=== PATIENT | female | born 1965 | race Caucasian/White ===

== ENCOUNTER 2024-11-20 11:30 | Outpatient (CLI) | payer BC, SELFPAY ==
--- OUTSIDE RECORDS SUMMARY | 2024-11-20 11:32 | XMS_ITS | Patient Health Record ---
Author Organization [facility] Address [address] [place] [address] Care Team Providers Care Technical Service Representative Name Role Phone Georgina Moore Primary Care Provider [phone] Allergies Allergen (clinical drug ingredient) Drug/Non Drug Allergy documented on EMR Reaction Allergy Type Onset Date Status aspirin Aspirin bruising Drug Allergy Active Reason For Referral No Information Medications Medication SIG (Take, Route, Frequency, Duration) Notes Start Date End Date Status Acyclovir 400 MG Tablet 1 tablet Orally once daily; Duration: 90 days 07/23/2023 Active ALPRAZolam 0.5 MG Tablet TAKE 1 TABLET BY MOUTH TWICE DAILY; Duration: 30 DX F41.1 05/27/2024 Active L-Lysine Extra Strength Active Acyclovir 400 MG Tablet TAKE 1 TABLET BY MOUTH THREE TIMES DAILY FOR 10 DAYS; Duration: 10 PRN Active Amitriptyline HCl 25 MG Tablet TAKE 1 TABLET BY MOUTH ONCE DAILY AT BEDTIME; Duration: 90 Not-Taking Vitamin B 12 500 MCG Tablet 1 tablet Orally Once a day Active Vitamin D 50 MCG (1999 UT) Tablet 1 tablet Orally Once a day Active [place] 3 Active Biotin 10 MG Tablet 1 tablet Orally Once a day Active Pantoprazole Sodium 40 MG Tablet Delayed Release Take 1 tablet by mouth once daily; Duration: 30 PRN Not-Taking PARoxetine HCl 20 MG Tablet TAKE 2 TABLETS BY MOUTH DAILY; Duration: 90 last refill needs FU Active Immunizations Vaccine Route Administration Date Status Comme nts Tdap Unknown 04/08/2015 Administered Social History Tobacco Use: Social History Observation Description Date Details (start date - stop date) Never Smoker NA - NA Social History Drugs/Alcohol: Social Info Question Answer Notes Caffeine Intake: 1-2 cups per day coffee Tobacco Use: Social Info Question Answer Notes Tobacco Use/Smoking Tobacco use: nonsmoker Additional Details Category Social Info Options Details Drugs/Alcohol: Do you drink alcohol? Yes, Socially Problems Problem Type SNOMED Code ICD Code Onset Dates Problem Status W/U Status Risk Notes Problem Recurrent major depression in full remission (10317122) Major depressive disorder, recurrent, in full remission (F33.42) Active confirmed Problem Generalized anxiety disorder (09565261) Generalized anxiety disorder (F41.1) Active confirmed Problem Cluster headache syndrome (349143011) Cluster headache syndrome, unspecified, not intractable (G44.009) Active confirmed Problem Gastroesophageal reflux disease (373623183) GERD without esophagitis (K21.9) Active confirmed Problem Insomnia (701090743) Insomnia, unspecified type (G47.00) Active confirmed Problem Plain X-ray of chest abnormal (finding) (6156781207) Abnormal chest xray (R93.89) Active confirmed Problem Disorder of breast (49013165) Breast asymmetry (N64.89) Active confirmed Encounters Encounter Location Date Provider Diagnosis [id number] [place] [address] 03/23/2024 Georginadion Moore [id number] [place] [address] 08/09/2024 Georgina Moore Insomnia, unspecified type G47.00 [id number] [place] [address] 08/12/2024 Georgina Moore Assessments Encounter Date Diagnosis (ICD Code) Assessment Notes Treatment Notes Treatment Clinical Notes Section Notes 08/09/2024 Insomnia, unspecified type (ICD-10 - G47.00) Plan Of Treatment Pending Test Test Name Order Date Ultrasound : Breast, right 02/01/2022 Ultrasound : Breast, right 10/29/2022 Ultrasound : Breasts, bilateral 11/12/19 MAMMOGRAM, SCREENING 10/29/2022 X ray : Chest (PA lateral) 10/25/2021 zCBC With Differential/Platelet-[id number] 07/10/2022 Diagnostic Mammogram, Right 02/01/2022 Diagnostic Mammogram, Right 11/11/2022 Insurance Providers Payer Name Payer Address Payer Phone Subscriber Number Group Number Insured Name Patient Relationship to Insured Coverage Start Date Coverage End Date [place] FEP [address] [place] [id number] Self - patient is the insured Medical (General) History Medical History History ICD Code anxiety depression migraine headaches allergies Cancer, cervical Surgical History Surgery Date(Month/Year) Hysterectomy 2007 appendectomy cholecystectomy gallbladder
--- OUTSIDE RECORDS SUMMARY | 2024-11-20 11:32 | XMS_ITS | Clinical Summary ---
Author Organization [facility] Address [address] [place] [id number] Care Team Providers Care Doll Repairer Name Role Phone Unavailable Primary Care Provider Unavailabl e Allergies Active Allergy Reactions Criticality Noted Date Comments [place] Extract Other/Unknown (See Comments) 1 Medications paroxetine (PAXIL) 40 MG tablet Take 1 tablet (40 mg) by mouth every morning Active acyclovir (ZOVIRAX) 400 MG tablet Take 1 tablet (400 mg) by mouth 2 times daily Active zolpidem (AMBIEN CR, ER,) 12.5 MG CR tablet (ER) Take 1 tablet (12.5 mg) by mouth at bedtime as needed. for Sleep Active Social History Tobacco Use Types Packs/Day Years Used Date Smoking Tobacco: Never Smokeless Tobacco: Never Tobacco Cessation:Counseling Given: Not Answered Comments No Sex and Gender Information Value Date Recorded Sex Assigned at Not on file Legal Sex Female 10:18 AM CDT Gender Identity Not on file Sexual Orientation Not on file Last Filed Vital Signs Vital Sign Reading Time Taken Comments Blood Pressure 120/74 04/07/2024 11:10 AM PAPER HANGER Pulse 88 04/07/2024 11:10 AM PAPER HANGER Temperature 37.2 C (99 F) 04/07/2024 9:20 AM PAPER HANGER Respiratory Rate 20 04/07/2024 11:10 AM PAPER HANGER Oxygen Saturation 98% 04/07/2024 11:10 AM PAPER HANGER Inhaled Oxygen Concentration - - Weight 74.8 kg (165 lb) 04/07/2024 9:20 AM PAPER HANGER Height - - Body Mass Index - - Plan of Treatment Health Maintenance Due Date Last Done Comments HIV Screening 1965 Hepatitis C Screening ages 1 8 to 79 once 1967 MMR VACCINES (1 of 1 - Standard series) 1968 YEARLY WELLNESS EXAM 1970 DEPRESSION SCREENING 1979 HEPATITIS B VACCINES (1 of 3 - 19+ 3-dose series) 1986 CERVICAL CANCER SCREENING 1988 Colon Cancer Screening 2012 LIPID TESTING 2012 Zoster Vaccine (Recombinant Vaccine) (1 of 2) 2017 COVID-19 Immunization ( season) 2023 Influenza Vaccine 11/06/2024 04/12/2014, 01/10/2009 BREAST CANCER SCREENING 01/27/2025 01/28/2024 ADULT TETANUS 10/26/2027 10/25/2017 HEPATITIS A VACCINES Aged Out No long er eligible based on patient's age to complete this topic HIB VACCINES Aged Out No longer eligi ble based on patient's age to complete this topic HPV VACCINES Aged Out No longer eligi ble based on patient's age to complete this topic IPV VACCINES Aged Out No longer eligi ble based on patient's age to complete this topic MENINGOCOCCAL VACCINE Aged Out No [place] eligible based on patient's age to complete this topic Meningococcal B Vaccine Aged Out No l onger eligible based on patient's age to complete this topic Pneumococcal Vaccine: Peds t o 50 & At-Risk Patients Aged Out No longer eligible based on patient's age to complete this topic ROTAVIRUS VACCINES Aged Out No longer eligible based on patient's age to complete this topic Insurance ANTHEM/BCBS
--- NOTE | 2024-11-20 12:26 | ECG_ITS ---
Test Date: 2024-11-20 12:42:57 Measurements Intervals Cobb Rate: 63 P: 24 ND: 177 QRS: 21 QRSD: 86 T: 34 QT: 422 QTc: 432 Interpretive Statements SINUS RHYTHM CONSIDER INFERIOR INFARCT, AGE INDETERMINATE BASELINE ARTIFACT- I, II, III, AVR, AVL, AVF, V1-V6 ABNORMAL ECG No previous ECG available for comparison Electronically Signed On 11-20-2024 12:46:06 CDT by David Palma D.O.
[2024-11-20 12:59] LABS: Hematocrit 38.8 % (37.0-47.0); Hemoglobin 12.8 g/dL (12.0-15.0); Immature Granulocyte Percent A 0.4 % (0-0.5); Lymphocytes Absolute Auto 2.34 K/mm3 (0.9-3.2); Mean Corpuscular HGB Conc 33.0 g/dl (32-36); Mean Corpuscular Hemoglobin 30.6 pg (26-34); Mean Corpuscular Volume 92.8 fl (80-100); Nucleated Red Blood Cells Absolute Auto 0.000 K/mm3 (0.0-0.012); Nucleated Red Blood Cells Perc 0.0 % (0.0-0.2); Platelet Count Result 244 k/mm3 (150-375); Red Blood Count 4.18 M/mm3 (4.2-5.4); White Blood Count 5.6 K/mm3 (4.5-10.0)
[2024-11-20 13:10] LABS: Albumin Level 4.4 g/dL (3.5-5.1); Estimated Glomerular Filt Rate > 60; Glucose 99 mg/dL (65-110)
[2024-11-20 14:20] LABS: MRSA (PCR) NOT DETECTED (NOT DETECTE)
[2024-11-20 14:56] LABS: Hemoglobin A1C 5.6 % (<5.7)
== END 2024-11-20 11:31 | disposition home or self-care (01) ==
PROVIDERS: Visit Provider Orthopaedic Surgery
DX: M16.12 Unilateral primary osteoarthritis, left hip (principal); Z01.818 Encounter for other preprocedural examination
CPT/HCPCS: 80307; 82040; 82565; 82947; 83036; 85025; 86850; 86900; 86901; 87641; 93005

== ENCOUNTER 2024-11-30 01:17 | Day surgery (SDC) | payer BC, SELFPAY ==
[2024-11-20 11:44] VITALS: BP 130/70; PULSE 68; RESP 16; TEMP 36.6; O2SAT 99; BMI 30.3
--- NOTE | 2024-11-20 12:04 | PC.NURSE ---
Report to the Outpatient Waiting Room, entrance under the green pavilion located off [facility], at time __6:00AM___ on date ___11/30/24__. Planned Procedure Time: ___7:30AM___.? Time changes happen often and if your time is changed the preop area will call you the afternoon before. - You and your visitor will be asked to self-screen and do not enter if you have any COVID symptoms. Please call surgeon if you need to reschedule. - A mask is optional within the hospital at this time. Patients may have clear liquids (water, carbonated beverages, clear teas, apple juice) until 3 hours prior to surgery (4:30AM) with a maximum of 20 ounces. - No food from midnight until time of surgery and no smoking, or chewing tobacco (or any form of nicotine). No chewing gum, candy or mints. Take only the following medications with a SIP of water on the morning of surgery: _MAY TAKE ALPRAZOLAM & TRAMADOL NEEDED DO NOT STOP ANY OF YOUR OTHER PRESCRIPTION MEDICATIONS PRIOR TO SURGERY EXCEPT THE FOLLOWING Hold all vitamins and supplements for 3 days per anesthesiologist. Medications to discontinue per physician ___HOLD CELEBREX PER DR PRIEST Date to take last dose Please no make-up, nail mongolian, hairspray, perfume, deodorant, or body powder the day of surgery.? No jewelry (including any body piercings) or valuables the day of surgery, leave them at home.? Please take a shower or bath the night before, or the morning of, surgery with an antibacterial soap.? Wear comfortable, loose fitting clothing.? - Jewelry must be removed prior to entering the operating room.? Rings and piercings that are not removed may be cut off. - The hospital will not accept responsibility for valuables.? - Please leave all valuables, including medications, at home the day of surgery. If you are going home after surgery, a licensed corrugated fastener driver must drive you home.? - NO public transportation without another adult if you receive anesthesia. - We recommend that an adult stay with you for 24 hours following discharge. - We also recommend that you do not drive, make important decision, drink alcoholic beverages, or take any drugs that were not prescribed by your health care provider for at least 24 hours after your discharge time. Follow any additional instructions given to you from your surgeon. Telephone instructions given to ____PATIENT and asked if any additional questions and then verbalized understanding. Patient advised to call surgeon office or pre surgery nurse liaison [phone] if any additional questions.
--- NOTE | 2024-11-26 07:11 | PM.IMHP ---
H&P: HPI History of Present Illness Date/Time: 11/26/24 07:11 Chief Complaint: Patient presents hip pain left. She has an arthritic hip and has been dealing with the years. It has reached the point where conservative treatment is no longer working and she would like to proceed with hip replacement surgery. Review of Systems Musculoskeletal: Musculoskeletal: Reports arthralgias, Reports joint swelling and Reports stiffness Neurologic: Reports abnormal gait [facility] Social History Social History (Updated 09/24/24 @ 10:13 by Mai Felton [facility]) Smoking status: Never smoker Alcohol intake: current Drinks per week: 20 Substance use: never Do You Feel Safe in your Home?: Yes Lack of Transportation: No Lack of Food: Never True Current Housing: I Have Housing Concerned About Future Housing: No Difficulty Paying Gas/Electric Bills: No Difficulty Paying for Meds: No Currently Unemployed: No Education: Decline to Answer Difficulty w/ Childcare or Family Care: No Living arrangements: with family Additional living arrangements comments: SPOUSE Spiritual care concerns: No Meds Home Medications and Allergies Home Medications ?Medication ?Instructions ?Recorded ?Confirmed ?Type acyclovir 400 mg tablet 400 mg PO DAILY 09/24/24 11/20/24 History alprazolam 0.5 mg tablet 0.5 mg PO BID PRN anxiety 09/24/24 11/20/24 History celecoxib 200 mg capsule (Celebrex) 200 mg PO DAILY 09/24/24 11/20/24 History paroxetine HCl 40 mg tablet (Paxil) 40 mg PO DAILY 09/24/24 11/20/24 History zolpidem 10 mg tablet (Ambien) 10 mg PO QHS PRN sleep 09/24/24 11/20/24 History acetaminophen 325 mg tablet (Pain 650 mg PO Q4-6H PRN pain 11/20/24 11/20/24 History Relief (acetaminophen)) tramadol 50 mg tablet 50 mg PO BID PRN pain 11/20/24 11/20/24 History Allergies Allergy/AdvReac Type Severity Reaction Status Date / Time No Known Allergies Allergy Unverified 11/20/24 11:38 Exam Narrative: On exam she has limited motion of her hip. Internal and external rotation limited to about 0. She has pain to palpation manipulation. Neurologically she is intact. She walks with an antalgic gait. Has pain with any motion. Eyes: General: appearance normal, both eyes and all related structures Neck: Neck: supple Resp: Effort & Inspection: normal respiratory effort Cardio: Rate: regular rate Rhythm: regular rhythm Radiology Reports: Comments: XRay Report Ambulatory Signed Patient: Ana Maria Menard Results of Diagnostic Exam (Interpreted Today) 09/24/24 06:59 XR hip LT 2V w AP pelvis Routine Interpretation: AP lateral of the left hip with the pelvis she demonstrates severe degenerative changes, ([id number]) with a large cyst in the femoral head. No fracture, lesions, or masses are appreciated. Hip/Pelvis X-Ray 09/24/24 Orthopedics Result Report 09/24/24 Assessment and Plan Assessment and plan (1) Osteoarthritis of left hip: Code(s): M16.12 - Unilateral primary osteoarthritis, left hip Status: Acute Assessment and Plan: Patient has an arthritic left hip. She has failed conservative treatment at this time would like to proceed with hip replacement surgery. I discussed the risks, benefits, limitations, and alternatives with her in detail. She understands and agrees would like to proceed. We discussed her relatively young age of 59 as well. She would like to proceed will proceed per her request .
[2024-11-30] VITALS (13 sets, daily range): BP systolic 110–132; BP diastolic 69–84; PULSE 64–106; RESP 14–20; TEMP 36.2–36.8; O2SAT 95–100; BMI 29.9
--- NOTE | ~2024-11-30 | XR_ITS ---
XR surgery orthopedic Indication: Intraoperative left total hip arthroplasty TECHNIQUE: Fluoroscopy used during intraoperative left total hip arthroplasty performed by [Chapincito Cantor MD] on 11/30/2024. 2 fluoroscopic images. FINDINGS: Correlate with procedure note. IMPRESSION: Fluoroscopy used during intraoperative left total hip arthroplasty.. Reviewed, dictated and finalized at location O. IMPRESSION: Fluoroscopy used during intraoperative left total hip arthroplasty. .
--- OUTSIDE RECORDS SUMMARY | 2024-11-30 01:20 | XMS_ITS | Patient Health Record ---
Author Organization [facility] Address [address] [address] Care Team Providers Care Metal Alloy Scientist Name Role Phone Georgina Moore Primary Care Provider [phone] Allergies Allergen (clinical drug ingredient) Drug/Non Drug [...] 1 tablet Orally Once a day Active [place] 3 Active Biotin 10 MG Tablet 1 [...] Problem Recurrent major depression in full remission (12430112) Major depressive disorder, recurrent, in full remission (F33.42) Active confirmed Problem Generalized anxiety disorder (23309184) Generalized anxiety disorder (F41.1) Active confirmed Problem Cluster headache syndrome (622963152) Cluster headache syndrome, unspecified, not intractable (G44.009) Active confirmed Problem Gastroesophageal reflux disease (113994641) GERD without esophagitis (K21.9) Active confirmed Problem Insomnia (367216239) Insomnia, unspecified type (G47.00) Active confirmed Problem Plain X-ray of chest abnormal (finding) (5908112016) Abnormal chest xray (R93.89) Active confirmed Problem Disorder of breast (91713047) Breast asymmetry (N64.89) Active confirmed Encounters Encounter Location Date Provider Diagnosis [id number] [place] [address] 03/23/2024 Georginadion Moore [id number] [place] [address] 08/09/2024 Georgina Moore Insomnia, unspecified type G47.00 [id number] [place] [address] 08/12/2024 Georgina Moore Assessments Encounter Date Diagnosis (ICD Code) Assessment Notes Treatment Notes Treatment Clinical Notes Section Notes 08/09/2024 Insomnia, unspecified type (ICD-10 - G47.00) Plan Of Treatment Pending Test Test Name Order Date Ultrasound : Breast, right 02/01/2022 Ultrasound : Breast, right 10/29/2022 Ultrasound : Breasts, bilateral 11/12/19 MAMMOGRAM, SCREENING 10/29/2022 X ray : Chest (PA lateral) 10/25/2021 zCBC With Differential/Platelet-[id number] 07/10/2022 Diagnostic Mammogram, Right 11/11/2022 Diagnostic Mammogram, Right 02/01/2022 Insurance Providers Payer Name Payer Address Payer Phone Subscriber Number Group Number Insured Name Patient Relationship to Insured Coverage Start Date Coverage End Date [place] FEP [address] [place] [id number] Self - patient is the insured Medical (General) History Medical History History ICD Code anxiety depression migraine headaches allergies Cancer, cervical Surgical History Surgery Date(Month/Year) Hysterectomy 2007 appendectomy cholecystectomy gallbladder
--- OUTSIDE RECORDS SUMMARY | 2024-11-30 01:20 | XMS_ITS | Clinical Summary ---
Author Organization [facility] Address [address] [place] [address] Care Team Providers Care Supervising Librarian Name Role Phone Unavailable Primary Care Provider Unavailabl e Allergies Active Allergy Reactions Criticality Noted Date Comments [place] Extract Other/Unknown (See Comments) 1 Medications paroxetine [...] Comments Blood Pressure 120/74 04/07/2024 11:10 AM BALANCE AND HAIRSPRING ASSEMBLER Pulse 88 04/07/2024 11:10 AM BALANCE AND HAIRSPRING ASSEMBLER Temperature 37.2 C (99 F) 04/07/2024 9:20 AM BALANCE AND HAIRSPRING ASSEMBLER Respiratory Rate 20 04/07/2024 11:10 AM BALANCE AND HAIRSPRING ASSEMBLER Oxygen Saturation 98% 04/07/2024 11:10 AM BALANCE AND HAIRSPRING ASSEMBLER Inhaled Oxygen Concentration - - Weight 74.8 kg (165 lb) 04/07/2024 9:20 AM BALANCE AND HAIRSPRING ASSEMBLER Height - - Body Mass Index - [...]
[2024-11-30] MEDS: LACTATED RINGERS 1,000 ML 30 ML IV CONT ×2 (06:15→10:15)
[2024-11-30] MEDS: VANCOMYCIN 1,250 MG/NS 250 ML BAG 166.67 MG IVPB (06:30)
[2024-11-30] MEDS: ACETAMINOPHEN 500 MG TABLET 1000 MG PO (06:30)
[2024-11-30] MEDS: TRANEXAMIC ACID 1,000MG/ISO100 1,000 MG/100 ML BAG 200 MG IVPB (06:52)
--- NOTE | 2024-11-30 07:07 | WPDHPUPDATE1 ---
History and Physical Update Update Date/Time: 11/30/24 07:07 History and Physical has been reviewed, including an updated exam of the patient. There are NO changes in the patient's condition. Risks, benefits, and alternatives have been discussed and questions answered. Patient agrees to proceed with procedure.
--- NOTE | 2024-11-30 07:09 | WPDANESEPPF ---
Anes - Initial Pre Proc Eval Procedure: Operation Date: 11/30/24 07:30 Proposed Procedures p Left Total Hip Arthroplasty - Chapincito Cantor MD Date/Time: 11/30/24 07:09 Surgeon: Chapincito Cantor MD Pre Op Diagnosis: O A Left Hip Patient Data Age: 59 Gender: F Height: 1.63 m Weight: 79.2 kg Last Vital Signs Temp 36.4 C L 11/30/24 06:00 Pulse 64 11/30/24 06:00 Resp 16 11/30/24 06:00 BP 123/83 11/30/24 06:00 Pulse Ox 100 11/30/24 06:00 O2 Del Method Room Air 11/20/24 11:44 Allergies Allergy/AdvReac Type Severity Reaction Status Date / Time No Known Allergies Allergy Verified 11/30/24 06:09 Home Medications ?Medication ?Instructions ?Recorded ?Confirmed ?Type acyclovir 400 mg tablet 400 mg PO DAILY 09/24/24 11/20/24 History alprazolam 0.5 mg tablet 0.5 mg PO BID PRN anxiety 09/24/24 11/30/24 History celecoxib 200 mg capsule (Celebrex) 200 mg PO DAILY 09/24/24 11/20/24 History paroxetine HCl 40 mg tablet (Paxil) 40 mg PO DAILY 09/24/24 11/20/24 History zolpidem 10 mg tablet (Ambien) 10 mg PO QHS PRN sleep 09/24/24 11/20/24 History acetaminophen 325 mg tablet (Pain 650 mg PO Q4-6H PRN pain 11/20/24 11/20/24 History Relief (acetaminophen)) tramadol 50 mg tablet 50 mg PO BID PRN pain 11/20/24 11/30/24 History Patient hx anesthesia problems: none Family hx anesthesia problems: none Results Review: All pre-operative results and documents have been reviewed as part of the pre-operative evaluation. [facility] Social History Social History Smoking status: Never smoker Alcohol intake: current Drinks per week: 20 Substance use: never Do You Feel Safe in your Home?: Yes Lack of Transportation: No Lack of Food: Never True Current Housing: I Have Housing Concerned About Future Housing: No Difficulty Paying Gas/Electric Bills: No Difficulty Paying for Meds: No Currently Unemployed: No Education: Decline to Answer Difficulty w/ Childcare or Family Care: No Living arrangements: with family Additional living arrangements comments: SPOUSE Spiritual care concerns: No Anes - Eval Final PreProcedure Day of Procedure 11/30/24 07:09 Patient weight: overweight Heart: regular rate and rhythm Lungs: clear to auscultation Airway: Mallampati scale class III Neurological: alert and oriented Last oral intake: >/= 8 hours ASA classification: III Emergent: no Anesthetic plan: proceed Anesthesia type and monitoring: general ETT and standard monitoring Results Review: All pre-operative results and documents have been reviewed as part of the pre-operative evaluation. Informed Consent: The patient's anesthetic plan and its attendant risks and benefits were discussed with the patient/family/POA. Questions were solicited and answers provided to the satisfaction of the patient/family/POA.
[2024-11-30] MEDS: SCOPOLAMINE 1 MG PATCH 1 PATCH TRANSDERM (07:15)
[2024-11-30] MEDS: ceFAZolin 2 GM in SODIUM CHLORIDE 0.9% IV 50 ML 100 ML IVPB ×3 (07:44→23:02)
[2024-11-30] MEDS: BUPIVACAINE/EPINEPHRINE 0.5% 50 ML VIAL 30 ML INFILTRATE (08:51)
--- NOTE | 2024-11-30 09:34 | W.PM.PROC2 ---
Procedure Note - Detailed Date of Procedure 11/30/24 Pre-op Diagnosis Osteoarthritis Left Hip Post-op Diagnosis Same Procedure Performed LEFT Total Hip arthroplasty Surgeon Chapincito Cantor MD Anesthesia General Indications Pain and Arthritis Description of Procedure Patient was brought to the operating room #7, and an anesthetic was administered. The patient was placed with the operative Hip up and sterilely prepped and draped in the usual manner. A longitudinal incision was performed. Dissection was carried down to the fascia. A Hardinge type approach was used and the femoral head was dislocated anteriorly. The Femoral head was removed a finger breath above the lesser trochanter. The acetabulum was serially reamed to accept a 50mm component. This was impacted into place and secured with 2 25mm screws. A high wall liner was placed. The femur was reamed and broached to accept a #2 component which was impacted into place. A plus 0 head and neck (ceramic) was placed and the hip was put through full range of motion. The hip was noted to be stable. The wounds were then closed in a layered fashion using #5 ethibond, 2 vicryl, 2-0 vicryl and laura. Patient left the operating room in satisfactory condition. Implants Ellen Z1hip Stem Ellen multi hole cup Estimated Blood Loss 400 Drains No Packing No Pathology None sent Complications No immediate complications Condition Stable Disposition PACU [facility] Billing Surgery - Charge Forward: Surgery Billing ([id number] [place])
[2024-11-30] MEDS: fentaNYL CITRATE INJ (*CRX) 100 MCG/2 ML VIAL 25 MCG IV PUSH ×7 (10:15→10:39)
[2024-11-30] MEDS: HYDROmorphone HCL INJ (*CRX) 1 MG/ML SYR 0.5 MG IV PUSH ×3 (11:00→18:12)
--- NOTE | 2024-11-30 11:24 | ADMGEN ---
This patient, Ana Maria Menard, was admitted to 3 [facility] Surg Room 327-01. Patient/family oriented to hospital policies and general routines including ID bracelet, bed and alarms, visiting hours, pain management, procedures, bathroom and other care routines, personal items, smoking policy, room service/diet, and visiting hours. Information on how to activate the Rapid Response Team has been discussed. Patient/Family are encouraged to report perceived risks to care and to ask questions if they do not understand what they are told or what they should do.
[2024-11-30] MEDS: SODIUM CHLORIDE 0.9% IV 1,000 ML 125 ML IV CONT (12:04)
--- NOTE | 2024-11-30 12:04 | PM.IMCN ---
Assessment and Plan Assessment and plan (1) H/O total hip arthroplasty: Code(s): Z96.649 - Presence of unspecified artificial hip joint Status: Acute (2) Anxiety and depression: Code(s): F41.9 - Anxiety disorder, unspecified; F32.A - Depression, unspecified Status: Acute (3) Shingles: Code(s): B02.9 - Zoster without complications Status: Acute Plan 1. Left hip total arthroplasty Management per Ortho Physical therapy Pain control After physical therapists of discharge home tomorrow per Ortho 2. Anxiety and depression Continue paroxetine 40 mg at 3. Recurrent shingles Continue acyclovir 400 mg daily HPI Date of Consult Consult date: 11/30/24 Requesting Physician: Chapincito Cantor MD Primary Care Provider: Margy Petty Consult Narrative Narrative: Ana Maria Menard is a 59 year old female with past medical history of anxiety/depression, left hip osteoarthritis status post total hip arthroplasty 11/30/2024 who was admitted for overnight observation. [facility] Social History Social History Smoking status: Never smoker Alcohol intake: current Drinks per week: 16 Substance use: never Substance use type: does not use Do You Feel Safe in your Home?: Yes Lack of Transportation: No Lack of Food: Never True Current Housing: I Have Housing Concerned About Future Housing: No Difficulty Paying Gas/Electric Bills: No Difficulty Paying for Meds: No Currently Unemployed: No Education: Trade/Vocational Certificate Difficulty w/ Childcare or Family Care: No Living arrangements: with family Additional living arrangements comments: [facility] Spiritual care concerns: No Meds Home Medications and Allergies Home Medications ?Medication ?Instructions ?Recorded ?Confirmed ?Type acyclovir 400 mg tablet 400 mg PO DAILY 09/24/24 11/20/24 History alprazolam 0.5 mg tablet 0.5 mg PO BID PRN anxiety 09/24/24 11/30/24 History celecoxib 200 mg capsule (Celebrex) 200 mg PO DAILY 09/24/24 11/20/24 History paroxetine HCl 40 mg tablet (Paxil) 40 mg PO DAILY 09/24/24 11/20/24 History zolpidem 10 mg tablet (Ambien) 10 mg PO QHS PRN sleep 09/24/24 11/20/24 History acetaminophen 325 mg tablet (Pain 650 mg PO Q4-6H PRN pain 11/20/24 11/20/24 History Relief (acetaminophen)) tramadol 50 mg tablet 50 mg PO BID PRN pain 11/20/24 11/30/24 History Allergies Allergy/AdvReac Type Severity Reaction Status Date / Time No Known Allergies Allergy Verified 11/30/24 11:28 Vital Signs Vital Signs - 24 hr 11/30/24 06:00 11/30/24 10:09 11/30/24 10:25 Temperature 36.4 C L 36.8 C Pulse Rate 64 92 105 H Respiratory Rate 16 19 15 Blood Pressure 123/83 121/76 129/69 Pulse Oximetry 100 100 100 Oxygen Delivery Simple Face Mask Simple Face Mask Oxygen Flow Rate 8 8 11/30/24 10:40 11/30/24 10:55 11/30/24 11:07 Temperature Pulse Rate 101 H 106 H 101 H Respiratory Rate 14 14 16 Blood Pressure 122/82 124/80 125/84 Pulse Oximetry 95 100 100 Oxygen Delivery Nasal Cannula Nasal Cannula Nasal Cannula Oxygen Flow Rate 3 3 3 11/30/24 11:11 Temperature 36.3 C L Pulse Rate 96 Respiratory Rate 18 Blood Pressure 132/83 Pulse Oximetry 100 Oxygen Delivery Oxygen Flow Rate Exam Narrative: APPEARANCE: No acute distress, nontoxic EYES: EOMI HEENT: Normocephalic, atraumatic, OMM RESPIRATORY: No respiratory distress Clear to auscultation bilaterally with no rhonchi wheezing or rales. CARDIOVASCULAR: RRR, S1 and S2 without murmurs rubs or gallops. ABDOMINAL: Soft, nontender, nondistended, no rebound or guarding MSK: Left hip swelling and pain secondary to the posterior. Range of motion is limited due to the pain NEURO: Awake and alert. Following commands, speech normal, no focal deficits SKIN:: Warm, dry. No rashes lesions or abrasions PSYCHIATRIC: Normal affect/mood,
[2024-11-30] MEDS: HYDROcodone/acetaminophen (*CRX) 7.5-325 MG TABLET 1 TAB PO ×2 (13:48→22:49)
[2024-11-30] MEDS: HYDROcodone/acetaminophen (*CRX) 5-325 MG TABLET 1 TAB PO (17:02)
[2024-11-30] MEDS: SENNA/DOCUSATE SODIUM TABLET 2 TAB PO (17:03)
[2024-11-30] MEDS: RIVAROXABAN 10 MG TABLET PO (17:03)
[2024-11-30] MEDS: HYDROmorphone HCL INJ (*CRX) 1 MG/ML SYR IV PUSH (20:25)
[2024-12-01 00:56] VITALS: BP 100/55; PULSE 85; RESP 16; TEMP 36.2; O2SAT 96
[2024-12-01] MEDS: IBUPROFEN IV 800 MG/200 ML 800 MG/200 ML BAG 400 MG IVPB (01:28)
[2024-12-01] MEDS: HYDROmorphone HCL INJ (*CRX) 1 MG/ML SYR IV PUSH (01:29)
[2024-12-01 04:56] VITALS: BP 109/53; PULSE 80; RESP 16; TEMP 35.6; O2SAT 98
[2024-12-01] MEDS: HYDROcodone/acetaminophen (*CRX) 7.5-325 MG TABLET 1 TAB PO ×4 (05:22→16:23)
[2024-12-01 06:23] LABS: Hematocrit 31.8 % (37.0-47.0); Hemoglobin 10.6 g/dL (12.0-15.0); Immature Granulocyte Percent A 0.4 % (0-0.5); Lymphocytes Absolute Auto 1.63 K/mm3 (0.9-3.2); Mean Corpuscular HGB Conc 33.3 g/dl (32-36); Mean Corpuscular Hemoglobin 31.0 pg (26-34); Mean Corpuscular Volume 93.0 fl (80-100); Nucleated Red Blood Cells Absolute Auto 0.000 K/mm3 (0.0-0.012); Nucleated Red Blood Cells Perc 0.0 % (0.0-0.2); Platelet Count Result 208 k/mm3 (150-375); Red Blood Count 3.42 M/mm3 (4.2-5.4); White Blood Count 9.6 K/mm3 (4.5-10.0)
[2024-12-01 06:53] LABS: Anion Gap 5 mmol/L (4-12); Blood Urea Nitrogen 10 mg/dL (7-17); Calcium 8.0 mg/dL (8.4-10.2); Carbon Dioxide 28 mmol/L (22-30); Chloride 102 mmol/L (98-107); Estimated CRCL calculation 76 ml/min; Estimated Glomerular Filt Rate > 60; Glucose 117 mg/dL (65-110); Potassium 3.5 mmol/L (3.4-5.0); Sodium 135 mmol/L (137-145)
--- NOTE | 2024-12-01 07:04 | P.PNOP_ITS ---
Progress Note: A&P Assessment and Plan (1) History of total left hip replacement: Code(s): Z96.642 - Presence of left artificial hip joint Status: Acute Assessment and Plan: Patient is status post total hip arthroplasty left. She is doing well. Will continue with therapy this afternoon and anticipate discharge. Follow up 10 to 14 days for sutures out. Subjective Subjective Date/Time Seen: 12/01/24 07:04 Post Op day: 1 Principal diagnosis: Left total hip arthroplasty Review of Systems Musculoskeletal: Musculoskeletal: Reports arthralgias, Reports joint swelling and Reports stiffness Neurologic: Reports abnormal gait Exam Narrative: Patient is wiggling her toes well. She is neurovascularly intact. Dressing is clean and dry. She is able ambulate. Objective Data Vital Signs Vital Signs: Vital Signs - 24 hr 11/30/24 10:09 11/30/24 10:25 11/30/24 10:40 Temperature 98.3 F Pulse Rate 92 105 H 101 H Respiratory Rate 19 15 14 Blood Pressure 121/76 129/69 122/82 Pulse Oximetry 100 100 95 Oxygen Delivery Simple Face Mask Simple Face Mask Nasal Cannula Oxygen Flow Rate 8 8 3 Fraction of Inspired Oxygen 11/30/24 10:55 11/30/24 11:07 11/30/24 11:11 Temperature 97.4 F L Pulse Rate 106 H 101 H 96 Respiratory Rate 14 16 18 Blood Pressure 124/80 125/84 132/83 Pulse Oximetry 100 100 100 Oxygen Delivery Nasal Cannula Nasal Cannula Oxygen Flow Rate 3 3 Fraction of Inspired Oxygen 11/30/24 11:26 11/30/24 11:56 11/30/24 12:45 Temperature 97.4 F L 97.8 F Pulse Rate 95 94 Respiratory Rate 18 18 Blood Pressure 115/77 110/80 Pulse Oximetry 100 99 99 Oxygen Delivery Nasal Cannula Oxygen Flow Rate 2 Fraction of Inspired Oxygen 11/30/24 12:45 11/30/24 12:56 11/30/24 13:22 Temperature 97.8 F Pulse Rate 94 Respiratory Rate 18 Blood Pressure 130/76 Pulse Oximetry 97 Oxygen Delivery Room Air Room Air Oxygen Flow Rate Fraction of Inspired Oxygen 11/30/24 20:00 11/30/24 20:56 11/30/24 21:24 Temperature 97.1 F L Pulse Rate 91 87 Respiratory Rate 16 20 Blood Pressure 125/78 Pulse Oximetry 99 97 Oxygen Delivery Room Air Room Air Oxygen Flow Rate Fraction of Inspired Oxygen 21 12/01/24 00:56 12/01/24 04:56 Temperature 97.1 F L 96.0 F L Pulse Rate 85 80 Respiratory Rate 16 16 Blood Pressure 100/55 L 109/53 L Pulse Oximetry 96 98 Oxygen Delivery Oxygen Flow Rate Fraction of Inspired Oxygen Intake/Output Intake/Output: Intake & Output 11/28/24 11/29/24 11/30/24 12/01/24 23:59 23:59 23:59 23:59 Intake Total 1979 150 Balance 1979 150 Meds/Results Medications: Active Medications Generic Name Dose Route Start Last Admin Trade Name Freq PRN Reason Stop Dose Admin Hydrocodone Bitart/Acetaminophen 1 tab 11/30/24 11:11 11/30/24 17:02 Hydrocodone/Acetaminophen (*Crx) 5-325 Mg Tablet PO 1 tab Q4H PRN Administration Pain Rated 4-6 Hydrocodone Bitart/Acetaminophen 1 tab 11/30/24 11:11 12/01/24 05:22 Hydrocodone/Acetaminophen (*Crx) 7.5-325 Mg Tablet PO 1 tab Q4H PRN Administration Pain Rated 7-10 Acyclovir 400 mg 12/01/24 09:00 Acyclovir 400 Mg Tablet PO DAILY ALVARO Alprazolam 0.5 mg 11/30/24 11:11 Alprazolam (*Crx) 0.5 Mg Tablet PO BID PRN Anxiety Celecoxib 200 mg 12/01/24 09:00 Celecoxib 200 Mg Capsule PO DAILY ALVARO Hydromorphone HCl 1 mg 11/30/24 11:11 12/01/24 01:29 Hydromorphone Hcl Inj (*Crx) 1 Mg/Ml Syr IV PUSH 1 mg Q2H PRN Administration Breakthrough Pain Rated 7-10 or NPO Hydromorphone HCl 0.5 mg 11/30/24 11:11 11/30/24 18:12 Hydromorphone Hcl Inj (*Crx) 1 Mg/Ml Syr IV PUSH 0.5 mg Q2H PRN Administration Breakthrough Pain Rated 4-6 or NPO Cefazolin Sodium 2 gm/ Sodium 50 mls @ 100 mls/hr 11/30/24 16:00 11/30/24 23:02 Chloride IVPB 12/01/24 08:29 100 mls/hr Q8H ALVARO Administration Ibuprofen 800 mg in 200 mls @ 400 mls/hr 11/30/24 11:11 12/01/24 01:28 Caldolor 800 Mg/200 Ml IVPB 400 mls/hr Q6H PRN Administration Breakthrough Pain Rated 1-3 or NPO Naloxone HCl 0.1 mg 11/30/24 11:11 Naloxone Hcl 0.4 Mg/Ml Vial IV PUSH Q2M PRN Opiate Reversal Ondansetron HCl 4 mg 11/30/24 11:11 Ondansetron Inj 4 Mg/2 Ml Vial IV PUSH Q4H PRN Nausea And Vomiting Paroxetine HCl 40 mg 12/01/24 09:00 Paroxetine 20 Mg Tablet PO DAILY [facility] Polyethylene Glycol 17 gm 12/01/24 09:00 Polyethylene Glycol 3350 17 Gm Powd.Pack PO QAM [facility] Rivaroxaban 10 mg 11/30/24 17:00 11/30/24 17:03 Rivaroxaban 10 Mg Tablet PO 10 mg DAILY@1700 ALVARO Administration Senna/Docusate Sodium 2 tab 11/30/24 17:00 11/30/24 17:03 Senna/Docusate Sodium Tablet PO 2 tab BID ALVARO Administration Tramadol HCl 50 mg 11/30/24 11:11 Tramadol Hcl (*Crx) 50 Mg Tablet PO Q4H PRN Pain Rated 1-3 Zolpidem Tartrate 10 mg 11/30/24 15:56 Zolpidem Tartrate (*Crx) 5 Mg Tablet PO QHS PRN Sleep Radiology Results: ITS Impressions Intraoperative X-Ray 11/30/24 09:40 IMPRESSION: Fluoroscopy used during intraoperative left total hip arthroplasty.. Labs Labs: Laboratory Results - last 24 hr 12/01/24 05:51 WBC 9.6 RBC 3.42 L Hgb 10.6 L Hct 31.8 L MCV 93.0 MCH 31.0 MCHC 33.3 RDW 12.3 Plt Count 208 MPV 10.1 Immature Gran % (Auto) 0.4 Neut % (Auto) 73.1 Lymph % (Auto) 16.9 L Rains % (Auto) 9.0 H Eos % (Auto) 0.0 Baso % (Auto) 0.6 Lymph # (Auto) 1.63 Rains # (Auto) 0.9 H Eos # (Auto) 0.0 Baso # (Auto) 0.1 Abs Immat Gran (auto) 0.04 H Absolute Neuts (auto) 7.0 H Absolute Nucleated RBC 0.000 Nucleated RBC % 0.0 Sodium 135 L Potassium 3.5 Chloride 102 Carbon Dioxide 28 Anion Gap 5 BUN 10 Creatinine 0.72 Estim Creat Clear Calc 76 Estimated GFR > 60 Glucose 117 H Calcium 8.0 L
[2024-12-01] MEDS: traMADol HCL (*CRX) 50 MG TABLET PO ×2 (07:43→14:57)
[2024-12-01] MEDS: ACYCLOVIR 400 MG TABLET PO (07:44)
[2024-12-01] MEDS: CELECOXIB 200 MG CAPSULE PO (07:44)
[2024-12-01 08:00] VITALS: O2SAT 98
[2024-12-01 08:56] VITALS: BP 115/56; PULSE 85; RESP 18; TEMP 36.1; O2SAT 100
[2024-12-01] MEDS: ceFAZolin 2 GM in SODIUM CHLORIDE 0.9% IV 50 ML 100 ML IVPB (09:03)
--- NOTE | 2024-12-01 11:37 | PM.IMPN ---
Progress Note: A&P Assessment and Plan (1) H/O total hip arthroplasty: Code(s): Z96.649 - Presence of unspecified artificial hip joint Status: Acute (2) Anxiety and depression: Code(s): F41.9 - Anxiety disorder, unspecified; F32.A - Depression, unspecified Status: Acute (3) Shingles: Code(s): B02.9 - Zoster without complications Status: Acute Plan 1. Left hip total arthroplasty Management per Ortho Physical therapy Pain control After physical therapists of discharge home tomorrow per Ortho 2. Anxiety and depression Continue paroxetine 40 mg at 3. Recurrent shingles Continue acyclovir 400 mg daily Subjective Date/time seen: 12/01/24 11:37 Interval history: No acute events reported overnight. Patient wants to be discharged. Drop in hemoglobin possibly dilutional. Patient can be discharged from medical standpoint Review of Systems Musculoskeletal: Musculoskeletal: Reports abnormal gait, Reports arthralgias, Reports joint swelling and Reports stiffness Neurologic: Reports abnormal gait Exam Narrative: APPEARANCE: No acute distress, nontoxic EYES: EOMI HEENT: Normocephalic, atraumatic, OMM RESPIRATORY: No respiratory distress Clear to auscultation bilaterally with no rhonchi wheezing or rales. CARDIOVASCULAR: RRR, S1 and S2 without murmurs rubs or gallops. ABDOMINAL: Soft, nontender, nondistended, no rebound or guarding MSK: Left hip swelling and pain secondary to the posterior. Range of motion is limited due to the pain NEURO: Awake and alert. Following commands, speech normal, no focal deficits SKIN:: Warm, dry. No rashes lesions or abrasions PSYCHIATRIC: Normal affect/mood, Objective Data Vital Signs Vital Signs: Vital Signs - 24 hr 11/30/24 11:56 11/30/24 12:45 11/30/24 12:45 Temperature 97.8 F Pulse Rate 94 Respiratory Rate 18 Blood Pressure 110/80 Pulse Oximetry 99 99 Oxygen Delivery Nasal Cannula Room Air Oxygen Flow Rate 2 Fraction of Inspired Oxygen 11/30/24 12:56 11/30/24 13:22 11/30/24 20:00 Temperature 97.8 F Pulse Rate 94 Respiratory Rate 18 Blood Pressure 130/76 Pulse Oximetry 97 Oxygen Delivery Room Air Room Air Oxygen Flow Rate Fraction of Inspired Oxygen 11/30/24 20:56 11/30/24 21:24 12/01/24 00:56 Temperature 97.1 F L 97.1 F L Pulse Rate 91 87 85 Respiratory Rate 16 20 16 Blood Pressure 125/78 100/55 L Pulse Oximetry 99 97 96 Oxygen Delivery Room Air Oxygen Flow Rate Fraction of Inspired Oxygen 21 12/01/24 04:56 12/01/24 08:00 Temperature 96.0 F L Pulse Rate 80 Respiratory Rate 16 Blood Pressure 109/53 L Pulse Oximetry 98 98 Oxygen Delivery Room Air Oxygen Flow Rate Fraction of Inspired Oxygen Intake/Output Intake/Output: Intake & Output 11/28/24 11/29/24 11/30/24 12/01/24 23:59 23:59 23:59 23:59 Intake Total 2029 390 Balance 2029 390 Meds/Results Medications: Active Medications Generic Name Dose Route Start Last Admin Trade Name Freq PRN Reason Stop Dose Admin Hydrocodone Bitart/Acetaminophen 1 tab 11/30/24 11:11 11/30/24 17:02 Hydrocodone/Acetaminophen (*Crx) 5-325 Mg Tablet PO 1 tab Q4H PRN Administration Pain Rated 4-6 Hydrocodone Bitart/Acetaminophen 1 tab 11/30/24 11:11 12/01/24 09:08 Hydrocodone/Acetaminophen (*Crx) 7.5-325 Mg Tablet PO 1 tab Q4H PRN Administration Pain Rated 7-10 Acyclovir 400 mg 12/01/24 09:00 12/01/24 07:44 Acyclovir 400 Mg Tablet PO 400 mg DAILY ALVARO Administration Alprazolam 0.5 mg 11/30/24 11:11 Alprazolam (*Crx) 0.5 Mg Tablet PO BID PRN Anxiety Celecoxib 200 mg 12/01/24 09:00 12/01/24 07:44 Celecoxib 200 Mg Capsule PO 200 mg DAILY ALVARO Administration Hydromorphone HCl 1 mg 11/30/24 11:11 12/01/24 01:29 Hydromorphone Hcl Inj (*Crx) 1 Mg/Ml Syr IV PUSH 1 mg Q2H PRN Administration Breakthrough Pain Rated 7-10 or NPO Hydromorphone HCl 0.5 mg 11/30/24 11:11 11/30/24 18:12 Hydromorphone Hcl Inj (*Crx) 1 Mg/Ml Syr IV PUSH 0.5 mg Q2H PRN Administration Breakthrough Pain Rated 4-6 or NPO Ibuprofen 800 mg in 200 mls @ 400 mls/hr 11/30/24 11:11 12/01/24 01:28 Caldolor 800 Mg/200 Ml IVPB 400 mls/hr Q6H PRN Administration Breakthrough Pain Rated 1-3 or NPO Miscellaneous Information 1 each 12/01/24 07:18 Silver Nitrate Bandage XX 12/02/24 07:17 PRN PRN Informational Naloxone HCl 0.1 mg 11/30/24 11:11 Naloxone Hcl 0.4 Mg/Ml Vial IV PUSH Q2M PRN Opiate Reversal Ondansetron HCl 4 mg 11/30/24 11:11 Ondansetron Inj 4 Mg/2 Ml Vial IV PUSH Q4H PRN Nausea And Vomiting Paroxetine HCl 40 mg 12/01/24 09:00 12/01/24 07:44 Paroxetine 20 Mg Tablet PO 40 mg DAILY ALVARO Administration Polyethylene Glycol 17 gm 12/01/24 09:00 12/01/24 07:44 Polyethylene Glycol 3350 17 Gm Powd.Pack PO Not Given QAM ALVARO Rivaroxaban 10 mg 11/30/24 17:00 11/30/24 17:03 Rivaroxaban 10 Mg Tablet PO 10 mg DAILY@1700 ALVARO Administration Senna/Docusate Sodium 2 tab 11/30/24 17:00 12/01/24 07:44 Senna/Docusate Sodium Tablet PO Not Given BID ALVARO Tramadol HCl 50 mg 11/30/24 11:11 12/01/24 07:43 Tramadol Hcl (*Crx) 50 Mg Tablet PO 50 mg Q4H PRN Administration Pain Rated 1-3 Zolpidem Tartrate 10 mg 11/30/24 15:56 Zolpidem Tartrate (*Crx) 5 Mg Tablet PO QHS PRN Sleep Radiology Results: ITS Impressions Intraoperative X-Ray 11/30/24 09:40 IMPRESSION: Fluoroscopy used during intraoperative left total hip arthroplasty.. Labs Labs: Laboratory Results - last 24 hr 12/01/24 05:51 WBC 9.6 RBC 3.42 L Hgb 10.6 L Hct 31.8 L MCV 93.0 MCH 31.0 MCHC 33.3 RDW 12.3 Plt Count 208 MPV 10.1 Immature Gran % (Auto) 0.4 Neut % (Auto) 73.1 Lymph % (Auto) 16.9 L Dickson % (Auto) 9.0 H Eos % (Auto) 0.0 Baso % (Auto) 0.6 Lymph # (Auto) 1.63 Dickson # (Auto) 0.9 H Eos # (Auto) 0.0 Baso # (Auto) 0.1 Abs Immat Gran (auto) 0.04 H Absolute Neuts (auto) 7.0 H Absolute Nucleated RBC 0.000 Nucleated RBC % 0.0 Sodium 135 L Potassium 3.5 Chloride 102 Carbon Dioxide 28 Anion Gap 5 BUN 10 Creatinine 0.72 Estim Creat Clear Calc 76 Estimated GFR > 60 Glucose 117 H Calcium 8.0 L Hospitalist MIPS Advance Care Plan I have confirmed that the patient's Advanced Care Plan is present, code status is documented, or surrogate decision maker is listed in patient medical record.: Yes Medication Reconciliation I have utilized all available resources to obtain, update and review the patients current medications (includes all prescriptions, OTC, herbals, cannabis, and nutritional supplements).: Yes
[2024-12-01 12:56] VITALS: BP 123/67; PULSE 82; RESP 18; TEMP 36.1; O2SAT 100
== END 2024-12-01 16:45 | disposition home or self-care (01) ==
LOC: ANHSURGERY 07:15 → ANH3MEDSUR 11:12
PROVIDERS: Visit Provider Orthopaedic Surgery
PROC: (CPT 27130; principal; 2024-11-30 07:30)
DX: M16.12 Unilateral primary osteoarthritis, left hip (principal); F41.9 Anxiety disorder, unspecified; F32.A Depression, unspecified; B02.9 Zoster without complications; Z79.1 Long term (current) use of non-steroidal anti-inflammatories (NSAID); Z79.891 Long term (current) use of opiate analgesic
CPT/HCPCS: 27130; 36415; 80048; 85025; 97110; 97116; 97161; 97165; 97530; 97535; 99199; J0690; A9270; C1776; J1100; J1171; J1741; J2003; J2250; J2405; J2704; J3010; J3373; J7030; J7120